=== PATIENT | female | born 1990 | race Caucasian/White ===

== ENCOUNTER 2018-02-11 12:03 | Inpatient (IN) | payer MEDICAID ==
[2018-02-11] MEDS ORDERED: ONDANSETRON HCL INJ/PF 4 MG/2 ML SDV IV ONE ×2 (12:27→16:20)
[2018-02-11] MEDS ORDERED: HYDROMORPHONE HCL INJ/PF 2 MG/ML AMPULE IV ONE ×2 (12:27→15:39)
--- NOTE | 2018-02-11 12:32 | ER Document Report ---
ED Medical Screen (RME) - General Chief Complaint: Back Pain Stated Complaint: BACK PAIN Time Seen by Provider: 02/11/18 12:24 Mode of Arrival: Wheelchair Information source: Patient TRAVEL OUTSIDE OF THE [place] IN LAST 30 DAYS: No - HPI Onset: Other - 4 d AGO Onset/Duration: Gradual Context: NO INJURY RECALLED Quality of pain: Pressure, Sharp Severity: Moderate Associated Symptoms: Other - NO INCONTINENCE OR RETENTION. denies: Chills, Fever Exacerbated by: Movement Relieved by: Denies Similar symptoms previously: Yes - BACK PAIN, YES; LEG SWELLING NO Recently seen / treated by doctor: Yes - BECCA FLORES E.D., 02/08 - Related Data Allergies/Adverse Reactions: Penicillins Allergy (Severe, Verified 06/24/16 17:06) Anaphylaxis Past Medical History - General Information source: Patient - Social History Frequency of alcohol use: None Drug Abuse: None - Past Medical History Cardiac Medical History: Reports: None Pulmonary Medical History: Reports: None EENT Medical History: Reports: None Neurological Medical History: Reports: Other - [place] Endocrine Medical History: Reports: None Renal/ Medical History: Reports: None. Denies: Hx Peritoneal Dialysis Malignancy Medical History: Reports: None GI Medical History: Reports: None Musculoskeltal Medical History: Reports Other - BACK PAIN Review of Systems - Review of Systems Constitutional: No symptoms reported. denies: Chills, Fever EENT: No symptoms reported Cardiovascular: No symptoms reported, Edema - LEFT LEG Respiratory: No symptoms reported. denies: Short of breath Gastrointestinal: No symptoms reported Genitourinary: No symptoms reported Female Genitourinary: No symptoms reported Musculoskeletal: See HPI, Back pain Skin: No symptoms reported Neurological/Psychological: No symptoms reported Physical Exam - Vital signs Vitals: Temp Pulse Resp BP Pulse Ox 98.9 F 71 18 138/76 H 98 02/11/18 12:18 02/11/18 12:18 02/11/18 12:18 02/11/18 12:18 02/11/18 12:18 Interpretation: Normal. No: Tachycardic, Tachypneic, Febrile - General General appearance: Appears well, Alert In distress: None - HEENT Head: Normocephalic Eyes: Normal Conjunctiva: Normal Nasal: Normal Mouth/Lips: Normal Mucous membranes: Normal - Respiratory Respiratory status: No respiratory distress - Cardiovascular Rhythm: Regular - Abdominal Inspection: Obese - Back Back: Tender - OVER L5, S1 - Extremities General upper extremity: Normal inspection General lower extremity: No: Normal inspection - L. LEG EDEMATOUS, VIOLACEOUS - Neurological Neuro grossly intact: No - HYPESTHESIA TO LIGHT TOUCH L. LEG & FOOT Cognition: Normal Orientation: AAOx4 - Psychological Associated symptoms: Normal affect, Normal mood - Skin Skin Temperature: Warm Skin Moisture: Dry Skin Color: Normal Skin Turgor: Elastic Course - Vital Signs Vital signs: Temp Pulse Resp BP Pulse Ox 98.9 F 71 18 138/76 H 98 02/11/18 12:18 02/11/18 12:18 02/11/18 12:18 02/11/18 12:18 02/11/18 12:18
[2018-02-11 13:28] LABS: ABSOLUTE LYMPHOCYTES (AUTO) 0.8 10^3/uL (0.5-4.7); ABSOLUTE MONOCYTES (AUTO) 0.6 10^3/uL (0.1-1.4); ABSOLUTE NEUT (AUTO) 11.7 10^3/uL (1.7-8.2); BASOPHILS % (AUTO) 0.2 % (0-2); HEMATOCRIT 42.9 % (36.0-47.0); HEMOGLOBIN 13.9 g/dL (12.0-15.5); MEAN CORPUSCULAR HEMOGLOBIN 28.6 pg (27.0-33.4); MEAN CORPUSCULAR HGB CONC 32.5 g/dL (32.0-36.0); MEAN CORPUSCULAR VOLUME 88 fl (80-97); MONOCYTES % (AUTO) 4.5 % (3-13); PLATELET COUNT 285 10^3/uL (150-450); RED BLOOD COUNT 4.87 10^6/uL (3.72-5.28); RED CELL DISTRIBUTION WIDTH 17.8 % (11.5-14.0); SEGMENTED NEUTROPHILS % (AUTO) 89.3 % (42-78); TOTAL CELLS COUNTED % (AUTO) 100 %; WHITE BLOOD COUNT 13.1 10^3/uL (4.0-10.5)
[2018-02-11 13:35] LABS: INTERNATIONAL RATION (INR) 1.08; PROTHROMBIN TIME 14.6 SEC (11.4-15.4)
[2018-02-11 14:05] LABS: ALANINE AMINOTRANSFERASE 66 U/L (9-52); ALBUMIN 4.1 g/dL (3.5-5.0); ALKALINE PHOSPHATASE 97 U/L (38-126); ANION GAP 13 (5-19); ASPARTATE AMINO TRANSFERASE 66 U/L (14-36); BILIRUBIN,DIRECT 0.4 mg/dL (0.0-0.4); BILIRUBIN,TOTAL 0.5 mg/dL (0.2-1.3); BLOOD UREA NITROGEN 18 mg/dL (7-20); CALCIUM 9.8 mg/dL (8.4-10.2); CARBON DIOXIDE 25 mmol/L (22-30); CHLORIDE 106 mmol/L (98-107); GLUCOSE 164 mg/dL (75-110); POTASSIUM 3.9 mmol/L (3.6-5.0); SODIUM 143.5 mmol/L (137-145); TOTAL PROTEIN 7.1 g/dL (6.3-8.2)
--- NOTE | 2018-02-11 15:14 | RADIOLOGY REPORT (SQ) ---
EXAM DESCRIPTION: VENOUS UNILATERAL LOWER COMPLETED DATE/TIME: 02/11/2018 2:42 pm REASON FOR STUDY: PAIN SWELLING L. LEG COMPARISON: None. TECHNIQUE: Dynamic and static glover scale and color images acquired of the left leg venous system. Se lected spectral images acquired with additional compression and augmentation maneuvers. The contralat eral common femoral vein and saphenofemoral junction were also imaged. Images stored on PACS. LIMITATIONS: None. FINDINGS: LEFT COMMON FEMORAL: Common femoral vein is distended with slow flow. Normal compression and augmentation . No visualized echogenic material on glover scale. No defects on color images. FEMORAL: Superficial femoral vein is distended with slow flow. Normal compression and augmentation. No visualized echogenic material on glover scale. No defects on color images. POPLITEAL: Popliteal vein is distended with slow flow. Normal compression, augmentation. No visualiz ed echogenic material on glover scale. No defects on color images. CALF VESSELS: Distended with slow flow. Normal compression, augmentation. No visualized echogenic ma terial on glover scale. No defects on color images. GSV and SSV: Normal compression, augmentation. No visualized echogenic material on glover scale. No def ects on color images. ANY DEEP VENOUS INSUFFICIENCY: Not evaluated. ANY EVIDENCE OF POPLITEAL CYST: No. OTHER: Throughout the left lower extremity venous system is distended with slow flow. Vessels are co mpressible. Findings are worrisome for more proximal venous obstruction in the pelvis along the left external or common iliac vein. Findings discussed with Dr. Dumont. RIGHT COMMON FEMORAL VEIN AND SAPHENOFEMORAL JUNCTION: Normal phasicity, compression and augmentation. No visualized echogenic material on glover scale. No de fects on color images. IMPRESSION: Although there is no acute deep venous thrombosis of the left leg, all of the deep and s uperficial fascial veins examined are distended with slow flow, worrisome for compression or obstruct ion in the iliac veins. Findings discussed with Dr. Dumont in the emergency room TECHNICAL DOCUMENTATION: JOB ID: [id number] [employer]- All Rights Reserved Reading location - IP/workstation name: [email or web address]
--- NOTE | 2018-02-11 15:54 | ER Document Report ---
ED Neck/Back Problem - General Chief Complaint: Back Pain Stated Complaint: BACK PAIN Time Seen by Provider: 02/11/18 12:24 Mode of Arrival: Wheelchair Information source: Patient TRAVEL OUTSIDE OF THE [place] IN LAST 30 DAYS: No - HPI Patient complains to provider of: Pain, Lower back Notes: Patient is here with complaints of low left back pain as well as left leg pain and leg swelling. Patient states that she has a history of having intermittent low back pain for years. She denies any recent falls or injuries. She states that the pain is worse when she lifts or moves her left leg coughs and moves in certain positions. Patient states that she was seen at an outside emergency department over the weekend for increasing pain in her left low back that was radiating down her left leg was diagnosed with sciatica and was placed on steroids, tramadol, muscle relaxers. She went back approximately 3-4 days ago due to swelling in the left leg and she reports that she was told she had a DVT in the left leg and was started on Xarelto. She is currently taking Xarelto. Since that time she has worsening swelling of the left leg and states that she is now having decreased sensation in the left leg. She denies any abdominal pain. She denies nausea, vomiting, diarrhea. She denies any rash. She denies any dysuria or hematuria. She denies any bowel or bladder dysfunction. No fever. No other complaints at this time. - Related Data Allergies/Adverse Reactions: Penicillins Allergy (Severe, Verified 06/24/16 17:06) Anaphylaxis cephalexin Allergy (Verified 02/11/18 12:29) Past Medical History - General Information source: Patient - Social History Smoking Status: Current Every Day Smoker Frequency of alcohol use: None Drug Abuse: None Family History: Reviewed & Not Pertinent Patient has suicidal ideation: No Patient has homicidal ideation: No - Past Medical History Cardiac Medical History: Reports: None Pulmonary Medical History: Reports: None EENT Medical History: Reports: None Neurological Medical History: Reports: Other - [place] Endocrine Medical History: Reports: None Renal/ Medical History: Reports: None. Denies: Hx Peritoneal Dialysis Malignancy Medical History: Reports: None GI Medical History: Reports: None Musculoskeltal Medical History: Reports Other - BACK PAIN Past Surgical History: Reports: Hx Section, Hx Tonsillectomy, Hx Tubal Ligation Review of Systems - Review of Systems -: Yes All other systems reviewed and negative Physical Exam - Vital signs Vitals: Temp Pulse Resp BP Pulse Ox 98.9 F 71 18 138/76 H 98 02/11/18 12:18 02/11/18 12:18 02/11/18 12:18 02/11/18 12:18 02/11/18 12:18 - Notes Notes: GENERAL: alert, cooperative, nontoxic, no distress. HEAD: normocephalic, atraumatic EYES: conjunctiva pink without discharge, no external redness or swelling. EARS: no external swelling, no external redness NOSE: atraumatic, no external swelling MOUTH/THROAT: mucous membranes moist and pink, posterior pharynx without erythema, swelling, exudate. No trismus or drooling. NECK: soft, supple, full range of motion, no meningismus. CHEST: no distress, lungs clear and equal throughout. No wheezing, rales, rhonchi. CARDIAC: regular rate and rhythm, no murmur, normal capillary refill, normal pulses. No peripheral edema noted. ABDOMEN: Soft, nontender. Obese abdomen. No obvious mass. No rebound tenderness or guarding. BACK: full range of motion, no CVA tenderness. Mild tenderness to the left lumbar area. No swelling. EXTREMITIES: Significant swelling to the entire left lower extremity. Left leg is cooler to the touch than the right and slightly dusky in appearance. Posterior tibial and dorsalis pedis pulse is currently palpable at this time. Decreased sensation to the left leg. NEURO: alert and oriented x 3, no focal deficits. PYSCH: appropriate mood, affect. Patient is cooperative. SKIN: pink, warm, dry, no rash. Course - Re-evaluation Re-evalutation: 02/11/18 20:49 Patient received pulse checks every hour while here in the emergency department. He was noted to have palpable pulses. Patient is nontoxic appearing with stable vitals. She is here with complaints of left leg pain and swelling. She was diagnosed with a DVT 4 days ago and was placed on Xarelto. She is having progressively worsening swelling of the left leg. Left leg does appear to be cooler than the right. She does have palpable pulses. She has normal reflexes. She does have some decreased sensation of the left leg as well. Patient had a CT the abdomen pelvis showed no obvious mass or occlusion. She had an ultrasound of the left lower extremity showing no DVT with dilation of the vessels and slow flow concerning for possible occlusion higher up. Her emergency department workup at this point is negative. I am concerned with the fact that her left leg is swelling more and is cooler to the touch. We would recommend admission to the hospital for further evaluation and management. Hospitalist is in the emergency department evaluating the patient at this time. 02/11/18 21:03 Patient was seen and evaluated by the hospitalist, the patient will be admitted for further evaluation and management. - Vital Signs Vital signs: Temp Pulse Resp BP Pulse Ox 98.9 F 71 18 138/76 H 98 02/11/18 12:18 02/11/18 12:18 02/11/18 12:18 02/11/18 12:18 02/11/18 12:18 - Laboratory Result Diagrams: 02/11/18 12:50 02/11/18 12:50 Laboratory results interpreted by me: 02/11/18 02/11/18 12:50 12:50 WBC 13.1 H RDW 17.8 H Seg Neutrophils % 89.3 H Lymphocytes % 6.0 L Absolute Neutrophils 11.7 H Glucose 164 H AST 66 H ALT 66 H - Diagnostic Test Radiology reviewed: Image reviewed, Reports reviewed - Venous Doppler of the left lower extremity shows dilation of the vessels with no DVT. CT of the abdomen and pelvis with IV and p.o. contrast show no acute abnormality or obstruction. Discharge - Discharge Clinical Impression: Leg swelling, Venous obstruction Back pain Qualifiers: Back pain location: low back pain Chronicity: acute Sciatica presence: with sciatica Sciatica laterality: sciatica of left side Condition: Stable Disposition: ADMITTED INPATIENT Admitting Provider: Hospitalist Unit Admitted: Medical Floor
[2018-02-11 16:50] LABS: APPEARANCE,URINE CLEAR; BILIRUBIN,URINE NEGATIVE (NEGATIVE); COLOR,URINE YELLOW; GLUCOSE, URINE NEGATIVE (NEGATIVE); KETONES,URINE NEGATIVE (NEGATIVE); LEUKOCYTE ESTERASE,URINE NEGATIVE (NEGATIVE); NITRITE,URINE NEGATIVE (NEGATIVE); PROTEIN,URINE NEGATIVE (NEGATIVE); URINE SPECIFIC GRAVITY 1.027; UROBILINOGEN,URINE NEGATIVE mg/dL (<2.0)
--- NOTE | 2018-02-11 18:56 | RADIOLOGY REPORT (SQ) ---
EXAM DESCRIPTION: CT ABD/PELVIS WITH IV ORAL COMPLETED DATE/TIME: 02/11/2018 6:31 pm REASON FOR STUDY: L. LE VENOUS OCCLUSION, R/O PELVIC MASS COMPARISON: None. TECHNIQUE: CT scan of the abdomen and pelvis performed using helical scanning technique with dynamic intravenous contrast injection. Oral contrast. Images reviewed with lung, soft tissue, and bone win dows. Reconstructed coronal and sagittal MPR images reviewed. Delayed images for evaluation of the ur inary system also acquired. All images stored on PACS. All CT scanners at this facility use dose modulation, iterative reconstruction, and/or weight based d osing when appropriate to reduce radiation dose to as low as reasonably achievable (ALARA). [facility]: Dose Right [facility]: CareDose [facility]: Dose Right [facility]: Teradose 4D [facility]: [employer] CONTRAST TYPE AND DOSE: contrast/concentration: Isovue 370.00 mg/ml; Total Contrast Delivered: 94.0 ml; Total Saline Delivered: 51.0 ml RENAL FUNCTION: BUN 18 creatinine 0.82 RADIATION DOSE: CT Rad equipment meets quality standard of care and radiation dose reduction techniq ues were employed. CTDIvol: 13.5 - 16.0 mGy. DLP: 1627 mGy-cm.. LIMITATIONS: None. FINDINGS: LOWER CHEST: No significant findings. No nodules or infiltrates. LIVER: Normal size. No masses. No dilated ducts. SPLEEN: Normal size. No focal lesions. PANCREAS: No masses. No significant calcifications. No adjacent inflammation or peripancreatic fluid collections. Pancreatic duct not dilated. GALLBLADDER: No identified stones by CT criteria. No inflammatory changes to suggest cholecystitis. ADRENAL GLANDS: No significant masses or asymmetry. RIGHT KIDNEY AND URETER: No solid masses. No significant calcifications. No hydronephrosis or hyd roureter. LEFT KIDNEY AND URETER: No solid masses. No significant calcifications. No hydronephrosis or hydr oureter. AORTA AND VESSELS: No aneurysm. No dissection. Renal arteries, SMA, celiac without stenosis. RETROPERITONEUM: No retroperitoneal adenopathy, hemorrhage or masses. BOWEL AND PERITONEAL CAVITY: There is what appears to be an opacified loop of small bowel on the left side of abdomen. See images 37 through 46. This changes appearance has contrast moves through the bowel. However, an 18 mm small bowel mass cannot entirely be excluded on image 44. APPENDIX: Not identified. PELVIS: No mass. No free fluid. Normal bladder. ABDOMINAL WALL: No masses. No hernias. BONES: No significant or acute findings. OTHER: No other significant finding. IMPRESSION: 1. No pelvic mass is present. 2. Cannot entirely exclude an 18 mm small bowel mass on the left. This may merely represent opacifi ed small bowel. Consider repeating a scanning sequence at this time. TECHNICAL DOCUMENTATION: JOB ID: [id number] Quality ID # [id number]: Final reports with documentation of one or more dose reduction techniques (e.g., Au tomated exposure control, adjustment of the mA and/or kV according to patient size, use of iterative reconstruction technique) 2010 [employer]- All Rights Reserved Reading location - IP/workstation name: [email or web address]
--- NOTE | 2018-02-11 20:08 | RADIOLOGY REPORT (SQ) ---
EXAM DESCRIPTION: CT ABD/PELVIS NO ORAL OR IV COMPLETED DATE/TIME: 02/11/2018 7:35 pm REASON FOR STUDY: left leg pain and decreased sensation COMPARISON: 02/11/2018 TECHNIQUE: CT scan of the abdomen and pelvis performed without intravenous or oral contrast. Images reviewed with lung, soft tissue, and bone windows. Reconstructed coronal and sagittal MPR images revi ewed. All images stored on PACS. All CT scanners at this facility use dose modulation, iterative reconstruction, and/or weight based d osing when appropriate to reduce radiation dose to as low as reasonably achievable (ALARA). [facility]: Dose Right [facility]: CareDose [facility]: Dose Right [facility]: Teradose 4D [facility]: [employer] RADIATION DOSE: CT Rad equipment meets quality standard of care and radiation dose reduction techniq ues were employed. CTDIvol: 11.5 mGy. DLP: 606 mGy-cm.mGy. LIMITATIONS: None. FINDINGS: LOWER CHEST: No significant findings. No nodules or infiltrates. NON-CONTRASTED LIVER, SPLEEN, ADRENALS: Evaluation limited by lack of IV contrast. No identified sign ificant masses. PANCREAS: No masses. No peripancreatic inflammatory changes. GALLBLADDER: No identified stones by CT criteria. No inflammatory changes to suggest cholecystitis. RIGHT KIDNEY AND URETER: No suspicious masses. Assessment limited by lack of IV contrast. No signif icant calcifications. No hydronephrosis or hydroureter. LEFT KIDNEY AND URETER: No suspicious masses. Assessment limited by lack of IV contrast. No signifi cant calcifications. No hydronephrosis or hydroureter. AORTA AND RETROPERITONEUM: No aneurysm. No retroperitoneal masses or adenopathy. BOWEL AND PERITONEAL CAVITY: No small bowel mass is seen. APPENDIX: Not identified. PELVIS, BLADDER, AND ABDOMINAL WALL:No abnormal masses. No free fluid. Bladder normal. BONES: No significant findings. OTHER: Subcutaneous edema is seen in the left lower extremity. IMPRESSION: 1. No small bowel mass is appreciated. 2. There is mild subcutaneous edema in the left lower extremity. COMMENT: Quality ID # [id number]: Final reports with documentation of one or more dose reduction techniques (e.g., Automated exposure control, adjustment of the mA and/or kV according to patient size, use of iterative reconstruction technique) TECHNICAL DOCUMENTATION: JOB ID: [id number]- All Rights Reserved Reading location - IP/workstation name: [email or web address]
[2018-02-11] MEDS ORDERED: ONDANSETRON HCL INJ/PF 4 MG/2 ML SDV IV PRN (21:04)
--- NOTE | 2018-02-11 21:55 | PDOC H&P ---
History of Present Illness Admission Date/PCP: 02/11/18 21:27 History of Present Illness: TREE GLYNN is a 27 year old female patient presents with left lower back and left leg pain. The pain is precipitated by bending forward and moving her left leg. Patient reports this morning of intermittent left buttock pain which comes and goes but this time it gets worse. For this problem patient was seen at outside facility emergency department where she was diagnosed with sciatica and started on steroids, tramadol and muscle relaxant. Since patient does not show any improvement she revisited ER and at this time patient was diagnosed with left leg DVT and started on Xarelto. Patient came to this hospital because the pain is unbearable and she is now having decreased sensation and swelling of the left leg. Patient denies any fever, chills, palpitation, diaphoresis, nausea, vomiting, diarrhea, abdominal pain or urinary complaints. No headache, dizziness, blurring of vision or any seizure activity. Past Medical History Cardiac Medical History: Reports: None Pulmonary Medical History: Reports: None EENT Medical History: Reports: None Neurological Medical History: Reports: Other - SCIATICA Endocrine Medical History: Reports: None Renal/ Medical History: Reports: None Malignancy Medical History: Reports: None GI Medical History: Reports: None Musculoskeltal Medical History: Reports: Other - BACK PAIN Past Surgical History Past Surgical History: Reports: Section, Tonsillectomy, Tubal Ligation Social History Smoking Status: Current Every Day Smoker Frequency of Alcohol Use: None Hx Recreational Drug Use: No Drugs: None Hx Prescription Drug Abuse: No Family History Family History: Reviewed & Not Pertinent Parental Family History Reviewed: Yes Children Family History Reviewed: Yes Sibling(s) Family History Reviewed.: Yes Medication/Allergy Home Medications: Prednisone 60 mg PO DAILY 02/11/18 Rivaroxaban [Xarelto] 1 each PO BID 02/11/18 Tramadol HCl 50 mg PO Q6 PRN 02/11/18 Allergies/Adverse Reactions: Penicillins Allergy (Severe, Verified 06/24/16 17:06) Anaphylaxis cephalexin Allergy (Verified 02/11/18 12:29) Review of Systems Constitutional: PRESENT: as per HPI Eyes: PRESENT: as per HPI Ears: PRESENT: as per HPI Respiratory: PRESENT: as per HPI Gastrointestinal: PRESENT: as per HPI Musculoskeletal: PRESENT: as per HPI Neurological: PRESENT: as per HPI Physical Exam Vital Signs: Temp Pulse Resp BP Pulse Ox 98.9 F 71 18 138/76 H 98 02/11/18 12:18 02/11/18 12:18 02/11/18 12:18 02/11/18 12:18 02/11/18 12:18 General appearance: PRESENT: mild distress Head exam: PRESENT: atraumatic, normocephalic Eye exam: PRESENT: conjunctiva pink, EOMI, PERRLA. ABSENT: scleral icterus Respiratory exam: PRESENT: clear to auscultation mainor. ABSENT: rales, rhonchi, wheezes Cardiovascular exam: PRESENT: RRR. ABSENT: diastolic murmur, rubs, systolic murmur GI/Abdominal exam: PRESENT: normal bowel sounds, soft. ABSENT: distended, guarding, mass, organolmegaly, rebound, tenderness Musculoskeletal exam: PRESENT: other - Left leg relatively swollen, tender and mild erythema Neurological exam: PRESENT: alert, awake, oriented to time, oriented to situation Results Impressions: Venous Doppler Study 02/11/18 12:25 IMPRESSION: Although there is no acute deep venous thrombosis of the left leg, all of the deep and superficial fascial veins examined are distended with slow flow, worrisome for compression or obstruction in the iliac veins. Findings discussed with Dr. Dumont in the emergency room Abdomen/Pelvis CT 02/11/18 19:20 IMPRESSION: 1. No small bowel mass is appreciated. 2. There is mild subcutaneous edema in the left lower extremity. Assessment & Plan - Diagnosis (1) Intractable low back pain Is this a current diagnosis for this admission?: Yes Plan: Patient failed outpatient treatment. She has been started on Percocet and fentanyl patch 50 mics (2) Left leg DVT Is this a current diagnosis for this admission?: Yes Plan: Continue Xarelto (3) Obesity Qualifiers: Obesity type: due to excess calories Is this a current diagnosis for this admission?: Yes Plan: Patient advised to do lifestyle modification.
[2018-02-11] MEDS: OXYCODONE-ACETAMINOPHEN 5-325 MG TABLET PO PRN (21:57)
[2018-02-11] MEDS ORDERED: RIVAROXABAN 10 MG TABLET PO SCH (22:00)
[2018-02-11] MEDS ORDERED: FENTANYL 25 MCG/HR PATCH.TD72 TD SCH (22:00)
--- NOTE | 2018-02-11 23:20 | RADIOLOGY REPORT (SQ) ---
EXAM DESCRIPTION: MRI LUMBAR SPINE COMBO COMPLETED DATE/TIME: 02/11/2018 10:57 pm REASON FOR STUDY: back pain COMPARISON: None. TECHNIQUE: Sagittal and Axial imaging includes T1, T1 post gadolinium, T2, STIR and gradient echo se quences. Coronal T2/HASTE imaging. CONTRAST TYPE AND DOSE: 15 mL Multihance. RENAL FUNCTION: None required. The patient is less than 50 years old. LIMITATIONS: None. FINDINGS: VISUALIZED UPPER ABDOMEN: Limited evaluation. No acute or suspicious findings suggested. SEGMENTATION: No transitional anatomy. The lowest well-developed disc space is labeled L5-S1. ALIGNMENT: Anatomic. VERTEBRAE: Intact. No fractures. BONE MARROW: No marrow edema. DISC SIGNAL: Normal. No significant abnormal signal or loss of height. POSTERIOR ELEMENTS: Generally intact. No pars defect evident. HARDWARE: None in the spine. CORD AND CONUS: Normal in size and signal intensity. Conus at the appropriate level. SOFT TISSUES: No aortic aneurysm seen. No bulky retroperitoneal adenopathy or mass. No paraspinal mas s or fluid. L1-L2: No significant spinal stenosis or exit foraminal stenosis. L2-L3: No significant spinal stenosis or exit foraminal stenosis. L3-L4: No significant spinal stenosis or exit foraminal stenosis. L4-L5: No significant spinal stenosis or exit foraminal stenosis. L5-S1: No significant spinal stenosis or exit foraminal stenosis. LOWER THORACIC: Incompletely imaged. No stenosis seen. SACRUM: Visualized upper sacrum intact. ENHANCEMENT: No abnormal enhancement. OTHER: Small accessory varices in the retroperitoneum and lumbar plexus. IMPRESSION: No disc protrusion or acute intraspinal abnormality.Small accessory varices in the retro peritoneum and lumbar plexus. TECHNICAL DOCUMENTATION: JOB ID: [id number] 2010 [employer]- All Rights Reserved Reading location - IP/workstation name: [email or web address]
[2018-02-12] MEDS: LANSOPRAZOLE 30 MG TAB.RAP.DR PO SCH (06:24)
[2018-02-12 07:06] LABS: HEMATOCRIT 40.2 % (36.0-47.0); HEMOGLOBIN 13.2 g/dL (12.0-15.5); MEAN CORPUSCULAR HEMOGLOBIN 28.9 pg (27.0-33.4); MEAN CORPUSCULAR HGB CONC 32.8 g/dL (32.0-36.0); MEAN CORPUSCULAR VOLUME 88 fl (80-97); PLATELET COUNT 193 10^3/uL (150-450); RED BLOOD COUNT 4.55 10^6/uL (3.72-5.28); RED CELL DISTRIBUTION WIDTH 17.5 % (11.5-14.0); WHITE BLOOD COUNT 8.7 10^3/uL (4.0-10.5)
[2018-02-12 07:37] LABS: ANION GAP 8 (5-19); BLOOD UREA NITROGEN 15 mg/dL (7-20); CARBON DIOXIDE 29 mmol/L (22-30); CHLORIDE 105 mmol/L (98-107); GLUCOSE 85 mg/dL (75-110); SODIUM 141.6 mmol/L (137-145)
[2018-02-12] MEDS: OXYCODONE-ACETAMINOPHEN 5-325 MG TABLET PO PRN ×3 (07:47→23:17)
[2018-02-12] MEDS ORDERED: KETOROLAC TROMETHAMINE INJ/PF 30 MG/1 ML SDV IV ONE (16:44)
[2018-02-12] MEDS ORDERED: KETOROLAC TROMETHAMINE INJ/PF 30 MG/1 ML SDV IV PRN (16:44)
--- NOTE | 2018-02-12 17:44 | PROGRESS NOTE E ---
Progress Note NAME: TREE GLYNN : 1990 AGE: 27Y DATE: 02/12/2018 ROOM: 210 SUBJECTIVE: The patient is seen in bed. The patient is quite tearful, concerned. The patient at this time denies any nausea, vomiting, diarrhea. No shortness of breath due to the chest pain. The patient was actually eating a sub sandwich when I entered the room. The patient states her pain is unbearable and has not improved throughout the day. The patient has been afebrile. Her blood pressures have been in a good range. The patient does not voice any specific concerns at this time. REVIEW OF SYSTEMS: The rest of the review of systems is negative. MEDICATIONS: Reviewed. OBJECTIVE: GENERAL: The patient is a 27-year-old female, who is awake, alert. She is oriented to person, place, time and situation. She is verbal and conversational. Does not appear to be in physical distress. VITAL SIGNS: Temperature is 98.3, pulse 83, respirations 15, blood pressure is 119/70, oxygen saturation 98% on room air. SKIN: Warm and dry. No rash. She is not diaphoretic. HEENT: Pupils equal, round and reactive to light and accommodation. Conjunctivae are pink. No evidence of JVD. CARDIOVASCULAR: Heart is regular. No murmur or rub. CHEST: Clear, symmetrical, unlabored. ABDOMEN: Soft, nontender, nondistended. BACK: No CVA tenderness or sacral edema. EXTREMITIES: No clubbing or cyanosis. The patient does have nonpitting edema noted of the left lower extremity. There is a discoloration. The patient does have 1+ pedal pulses bilaterally. The patient does have appropriate +2 inguinal pulses. Lower extremity is cool to the touch. It is not erythemic, but is not cold. PSYCHIATRIC: The patient is somewhat emotional. DIAGNOSTICS: Lab values are as follows: Hematology obtained on 02/12/2018: WBC is 8.7, hemoglobin is 13.2, hematocrit is 30.2, platelet count is 193,000. Chemistry obtained on 02/12/2018: Sodium is 141, potassium 4.0, chloride is 105, carbon dioxide 29, BUN 15, creatinine is 0.72. Glucose 85. Calcium is 9.0. IMPRESSION AND PLAN: 1. LEFT LOWER EXTREMITY DVT. I did call and discuss the case with Dr. Lencho Lisa, who has graciously agreed to see the patient. Will transition the patient's Xarelto to weight dose Lovenox to ensure efficacy of treatment. Additionally, we will add NSAID for inflammatory pain. At this time, the patient has no overt evidence of cyanosis or endangered limb. The patient does have appropriate pedal pulses at this time. I do appreciate Dr. Lencho Lisa' input with this. 2. TRANSAMINITIS, RELATIVELY MILD. MAY HAVE SOME UNDERLYING FATTY LIVER. Will repeat in the a.m. 3. OBESITY. The patient was counseled regarding lifestyle modification. 4. LOWER BACK PAIN. MAY BE DUE TO POSITIONING. The patient had no evidence on physical examination. The patient's MRI of the lower extremity was unremarkable. Will increase the patient's Percocet and add Toradol. DISPOSITION: The patient is a FULL CODE. Pending patient's symptomatology and diagnostic findings, will reevaluate in the a.m. Time spent on this followup, including assessment, plan, physical examination, patient education, review of records, specialty collaboration is 40 minutes. DICTATING PHYSICIAN: NADEEM PLATA NP [id number] PHY#: [id number] ID: [id number] JOB#: [id number] ACCT: [id number] cc: >
[2018-02-12] MEDS: ENOXAPARIN SODIUM INJ 100 MG/1 ML DISP.SYRIN SUBCUT SCH (18:12)
[2018-02-13] MEDS: LANSOPRAZOLE 30 MG TAB.RAP.DR PO SCH (06:00)
[2018-02-13] MEDS: ENOXAPARIN SODIUM INJ 100 MG/1 ML DISP.SYRIN SUBCUT SCH ×2 (06:00→17:10)
[2018-02-13 07:13] LABS: HEMATOCRIT 41.7 % (36.0-47.0); HEMOGLOBIN 13.6 g/dL (12.0-15.5); MEAN CORPUSCULAR HEMOGLOBIN 28.6 pg (27.0-33.4); MEAN CORPUSCULAR HGB CONC 32.6 g/dL (32.0-36.0); MEAN CORPUSCULAR VOLUME 88 fl (80-97); PLATELET COUNT 248 10^3/uL (150-450); RED BLOOD COUNT 4.75 10^6/uL (3.72-5.28); RED CELL DISTRIBUTION WIDTH 17.6 % (11.5-14.0); WHITE BLOOD COUNT 11.7 10^3/uL (4.0-10.5)
[2018-02-13 08:57] LABS: APPEARANCE,URINE SLIGHTLY-CLOUDY; BILIRUBIN,URINE NEGATIVE (NEGATIVE); COLOR,URINE AMBER; GLUCOSE, URINE NEGATIVE (NEGATIVE); KETONES,URINE NEGATIVE (NEGATIVE); LEUKOCYTE ESTERASE,URINE TRACE (NEGATIVE); NITRITE,URINE NEGATIVE (NEGATIVE); PROTEIN,URINE NEGATIVE (NEGATIVE); URINE SPECIFIC GRAVITY 1.024
[2018-02-13] MEDS: OXYCODONE-ACETAMINOPHEN 5-325 MG TABLET PO PRN (11:18)
--- NOTE | 2018-02-13 16:51 | PDOC CONSULTATION ---
Consultation Consult Date: 02/13/18 Attending physician:: ZOE SUNSHINE Consult reason:: Sudden onset pain and swelling in the left lower extremity. History of Present Illness Admission Date/PCP: 02/11/18 21:27 Patient complains of: Left lower back pain and left lower extremity pain. History of Present Illness: TREE GLYNN is a 27 year old female This patient is admitted with severe pain in the left lower extremity left lower back pain. She has been on Xarelto for a presumed clot. She notes severe back pain starting about a week ago followed by left lower extremity swelling. She says she has had this left lower back pain before and usually goes away. This time it did not. No specific injuries. She has never noticed lower extremity swelling except for bilateral swelling during her pregnancies. No special predilection for the left. No family history of clots or DVT. No current use of control pills. Not for several years. The patient is a heavy smoker seems about a pack per day. Past Medical History Cardiac Medical History: Reports: None Pulmonary Medical History: Reports: None EENT Medical History: Reports: None Neurological Medical History: Reports: Other - [place] Endocrine Medical History: Reports: None Renal/ Medical History: Reports: None Malignancy Medical History: Reports: None GI Medical History: Reports: None Musculoskeltal Medical History: Reports: Other - BACK PAIN Past Surgical History Past Surgical History: Reports: Section, Tonsillectomy, Tubal Ligation Social History Smoking Status: Unknown if Ever Smoked Frequency of Alcohol Use: None Hx Recreational Drug Use: No Drugs: None Hx Prescription Drug Abuse: No Family History Family History: Reviewed & Not Pertinent Parental Family History Reviewed: Yes - No history of clots or DVT. Children Family History Reviewed: No Sibling(s) Family History Reviewed.: No Medication/Allergy Home Medications: No Home Medications 02/11/18 Allergies/Adverse Reactions: Penicillins Allergy (Severe, Verified 06/24/16 17:06) Anaphylaxis cephalexin Allergy (Verified 02/11/18 12:29) Physical Exam Vital Signs: Temp Pulse Resp BP Pulse Ox 98.0 F 76 16 131/77 H 98 02/13/18 11:41 02/13/18 11:41 02/13/18 11:41 02/13/18 11:41 02/13/18 11:41 Intake & Output 02/12/18 02/13/18 02/14/18 06:59 06:59 06:59 Intake Total 350 Balance 350 Weight 89.4 kg Additional comments: Constitutional: Well-developed well-nourished lady, obese body habitus. Apparent emotional distress. Eyes: Mucous membranes pink and moist, pupils equal and reactive to light. Conjunctiva normal. Cornea normal. Cardiac: Heart sounds 1 and 2 normal, no murmurs. Respiratory breath sounds are present bilaterally, normal. Normal respiratory effort. Skin: Normal to inspection. No ulcers, normal turgor. Abdomen: Soft, nontender. Liver and spleen are not palpably enlarged. Bowel sounds are normal. No hernia noted. Striae gravidarum noted. Psychiatric: Judgment, memory, insight seem normal. Mood is anxious. Extremities: Upper extremities show normal range of movement. Pulses present noted to the radial arteries. Capillary refill normal. No cyanosis noted. No muscle wasting noted. Lower extremities show normal range of movement, some reduction in movement of the ankle due to swelling. Pulses present noted to the dorsalis pedis artery. Capillary refill normal. Considerable amount of swelling in the left lower extremity including the feet. No muscle wasting noted. Results Laboratory Results: 02/13/18 06:20 02/12/18 06:54 02/13/18 02/13/18 02/13/18 05:50 06:20 08:04 WBC 11.7 H RBC 4.75 Hgb 13.6 Hct 41.7 MCV 88 MCH 28.6 MCHC 32.6 RDW 17.6 H Plt Count 248 Urine Color Cancelled Urine Appearance Cancelled Urine pH Cancelled Ur Specific Max Cancelled Urine Protein Cancelled Urine Glucose (UA) Cancelled Urine Ketones Cancelled Urine Blood Cancelled Urine Nitrite Cancelled Ur Leukocyte Esterase Cancelled Urine WBC (Auto) Cancelled Urine RBC (Auto) Cancelled Stool Occult Blood NEGATIVE 02/13/18 08:15 WBC RBC Hgb Hct MCV MCH MCHC RDW Plt Count Urine Color JONNIE Urine Appearance SLIGHTLY-CLOUDY Urine pH 6.0 Ur Specific Max 1.024 Urine Protein NEGATIVE Urine Glucose (UA) NEGATIVE Urine Ketones NEGATIVE Urine Blood NEGATIVE Urine Nitrite NEGATIVE Ur Leukocyte Esterase TRACE H Urine WBC (Auto) 3 Urine RBC (Auto) 2 Stool Occult Blood Impressions: Lumbar Spine MRI 02/11/18 00:00 IMPRESSION: No disc protrusion or acute intraspinal abnormality.Small accessory varices in the retroperitoneum and lumbar plexus. Venous Doppler Study 02/11/18 12:25 IMPRESSION: Although there is no acute deep venous thrombosis of the left leg, all of the deep and superficial fascial veins examined are distended with slow flow, worrisome for compression or obstruction in the iliac veins. Findings discussed with Dr. Dumont in the emergency room Abdomen/Pelvis CT 02/11/18 19:20 IMPRESSION: 1. No small bowel mass is appreciated. 2. There is mild subcutaneous edema in the left lower extremity. Assessment & Plan - Diagnosis (1) Thrombosis of left iliac vein Is this a current diagnosis for this admission?: Yes Plan: Left lower extremity edema present on several studies. CT scan with IV IV contrast discussed with Dr. Alegria, confirms presence of left iliac vein thrombosis. Recommendations are for leg elevation, when seated or recumbent. Activity, particularly walking is encouraged. Compression stockings to be used bilaterally but certainly on the left. Especially important during activity. Smoking cessation is absolutely essential. I discussed this with the patient. She does have a heavy tobacco use habit but really must stop this is a significant risk factor for thrombosis. She understands that extension of this clot can result in pulmonary embolus, which is potentially lethal and every effort needs to be taken to prevent that. Hydration is important and I recommend keeping urine fairly clear with adequate water intake. Body mass index within normal is also desirable although more challenging to accomplish requiring time, activity, diet. In this young woman May Thurner syndrome is to be suspected and I believe she should be seen by vascular interventionalist for IVUS and possible stenting of the left iliac vein. This ideally in the next few weeks. I would be happy to arrange this. For the time being she should certainly remain on adequate anticoagulation. I would be happy to see her in office next Friday or . For the time being there appears no absolute need for to be in hospital, this judgment would be left to the patient and her physicians. (2) Back pain Qualifiers: Back pain location: low back pain Chronicity: acute Sciatica presence: with sciatica Sciatica laterality: sciatica of left side Is this a current diagnosis for this admission?: Yes (3) Leg swelling Is this a current diagnosis for this admission?: Yes (4) Obesity Qualifiers: Obesity type: due to excess calories Is this a current diagnosis for this admission?: Yes (5) Tobacco use disorder Is this a current diagnosis for this admission?: Yes Plan: Complete cessation of tobacco use is very strongly advocated and reasons discussed. - Plan Summary Plan Summary: As noted above under iliac vein thrombosis. I will be available for further follow-up and certainly would be happy to see the patient in office to participate in arranging vascular intervention.
[2018-02-13 17:55] VITALS: BP 108/68
--- NOTE | 2018-02-14 11:39 | DISCHARGE SUMMARY E ---
Discharge Summary NAME: TREE GLYNN : 1990 AGE: 27Y ADMITTED: 02/11/2018 DISCHARGED: 02/13/2018 CODE STATUS: FULL CODE. PRIMARY CARE PROVIDER: Nohemi Sharp CONSULTING VASCULAR SURGEON: Dr. Lencho Lisa. DISCHARGE DIAGNOSES: Includes: 1. Thrombosis of the left iliac vein. 2. Lower back pain and subsequent sciatica. 3. Obesity. 4. Tobacco dependency, continuous. 5. Mildly elevated LFTs. DISCHARGE MEDICATIONS: Include: 1. Lovenox 90 mg subcu q. 12 hours, 7 doses, 0 refills. 2. Ibuprofen 800 mg p.o. q. 8 hours p.r.n., 30 tablets with 0 refills. DIET: As tolerated. ACTIVITY: Keep left leg elevated when not in use. DIAGNOSTICS: Lab values are as follows: Hematology obtained on 02/13/2018: WBCs are 11.7, hemoglobin is 13.6, hematocrit is 41.7, platelet count is 248,000. Coagulation obtained on 02/11/2018: PT is 14.6, INR is 1.08. Chemistry obtained on 02/12/2018: Sodium is 141, potassium 4.0, chloride is 105, carbon dioxide 29, BUN 15, creatinine is 0.72, glucose 85, calcium is 9.0, bilirubin is 0.5. AST 66, ALT is 66, Alk phos 97, total protein 7.1, albumin is 4.1. HCG is negative. Urinalysis obtained on 02/13/2018: Color jenaro, appearance slightly cloudy. PH is 6.0, specific gravity is 1.024. Protein negative, glucose negative, ketones negative, occult blood negative, nitrite negative, bilirubin negative, urobilinogen is 4, leukocyte esterase is trace. WBCs 3, RBCs 2, bacteria trace. Other body source obtained on 02/13/2018: Stool for occult blood is negative. Lumbar spine MRI obtained on 02/11/2018 reveals no disk protrusion, acute intraspinal abnormality. Venous Doppler study obtained on 02/11/2018 reveals no findings to suggest acute DVT of the left leg. All of the deep and superficial fascial veins examined are distended with blood flow worrisome for compression or obstruction in the iliac veins. CT of the abdomen and pelvis obtained on 02/11/2018 reveals no pelvic mass present, cannot exclude an 18 mm small bowel mass on the left, which may represent opacified small bowel. CT of the abdomen and pelvis obtained on 02/11/2018 revealed no small bowel mass appreciated. There is mild subcutaneous edema of the left lower extremity. PHYSICAL EXAMINATION: GENERAL: On examination, the patient is a well-developed, obese 27-year-old female who is awake, alert. She is oriented to person, place, time, and situation. She is very anxious, does not appear to be in any acute distress. VITAL SIGNS: Temperature is 97.9, pulse 70, respirations 16, blood pressure is 108/68, oxygen saturation is 100% on room air. SKIN: Warm, dry. No rash. She is not diaphoretic. HEENT: Pupils equal, round, and reactive to light and accommodation. Conjunctiva is pink. No evidence of JVP. CARDIOVASCULAR SYSTEM: Heart is regular. There is no murmur or rub. CHEST: Clear, symmetrical, unlabored. ABDOMEN: Soft, nontender, nondistended. BACK: No CVA tenderness or sacral edema. EXTREMITIES: No clubbing, cyanosis. The patient's left lower extremity redness is improving with +1 pedal pulses noted bilaterally. PSYCHIATRIC: The patient is extremely anxious and exaggeratory. HISTORY OF PRESENT ILLNESS: The patient is a 27-year-old female with a past medical history of heavy tobacco use that presented to the emergency department with a chief complaint of lower back pain and left leg pain. The pain is precipitated by bending forward and moving her left leg. The patient states the morning of presentation she had intermittent left buttock pain, which comes and goes, but had gotten to the point that it was unbearable. The patient was actually seen at [facility] where she was diagnosed with sciatica, was started on steroids, tramadol, and muscle relaxant. The patient stated that she had no improvement and revisited this ER and was diagnosed with a left leg DVT and started on Xarelto. The patient came back to the hospital because the pain was unbearable and she was having decreased sensation as well as swelling of the leg. The patient denies any fevers, chills, palpitations, diaphoresis, nausea, vomiting, diarrhea, abdominal pain. No urinary complaints. No headache, dizziness, blurring, or any seizure activity, and the patient was referred to the hospitalist for admission and management. HOSPITAL COURSE: The patient was admitted to the medical unit. The patient was transitioned over to Lovenox given that she was not having significant improvement with Xarelto. Dr. Lencho Lisa with Vascular Surgery was consulted and the patient was evaluated by him. Upon further review of images, it appears the patient does indeed have a DVT of the iliac area and therefore is recommended followup with Dr. Benson, Vascular Surgery in [place], [place] on Friday. The patient can be seen as a walk-in. This was communicated to her. During the patient's stay, she was treated with NSAIDs. However, it is to be noted that the patient's reaction was not proportional to the course of events. The patient was often near hysterics and angry with staff. The patient was outside every hour or so smoking, although staff had forbid the patient to do this. Upon my conversations with the patient, I tried to correct some of her misconceptions about this issue. However, the patient would repeat my explanation in exaggerated terms. Prior to discharge, the case was discussed on speaker phone with the patient's at the patient's request. The patient explained to me that her would "rip you a new one." However, the patient's seemed genuinely concerned and was very calm and asked all appropriate questions. However, this patient's interpretation of this exchange was more of volatile than actually transpired. I have made numerous attempts to calm the patient and to put this in perspective; however, the patient is absolutely adamant that she be discharged. The patient is able to inject herself with Lovenox and has received teaching. I will send these over to the pharmacy and the patient can follow up Friday in [place]. This has been communicated to her by myself and staff, and the patient will not maintain eye contact for conversation and just continues to get dressed. The patient denies any shortness of breath. The patient has no wheezing, and the patient's acts as though the patient's behavior is normal. The patient received smoking cessation education by both nursing staff, myself, and Dr. Lisa. Additionally, the patient denies use of oral contraceptives and was warned regarding the repercussions of in the setting of clotting disorder. DISCHARGE PLANNING: The patient is to follow up with Dr. Benson in [place] with Vascular Surgery for followup at the direction of Dr. Lencho Lisa. Time spent on this discharge including assessment, plan, physical examination, patient education, review of records is 35 minutes. DICTATING PHYSICIAN: NADEEM PLATA NP [id number] PHY#: [id number] ID: [id number] JOB#: [id number] ACCT: [id number] cc:SUDHAKAR WHEATLEY M.D. > [facility]PITALSteven
== END 2018-02-13 18:15 | disposition home or self-care (01) | DRG 301 ==
LOC: ER 12:03 → INTOOBSV 21:27 → EH 21:27 → OBSVTOIN 21:27 → 2N 02-12 02:48
PROVIDERS: ADMIT Internal Medicine; ATTEND Internal Medicine
DX: I82.422 Acute embolism and thrombosis of left iliac vein (principal); M54.30 Sciatica, unspecified side; R74.8 Abnormal levels of other serum enzymes; R74.0 Nonspecific elevation of levels of transaminase and lactic acid dehydrogenase [LDH]; E66.9 Obesity, unspecified; F17.210 Nicotine dependence, cigarettes, uncomplicated; Z79.01 Long term (current) use of anticoagulants; Z68.38 Body mass index [BMI] 38.0-38.9, adult
CPT/HCPCS: 36415; 72158; 74176; 74177; 80048; 80053; 81001; 82272; 84703; 85025; 85027; 85610; 93971; 96374; 96375; 96376; 99285; G0378; J1170; J1650; J1885; J2405; J3490

== ENCOUNTER 2020-09-01 12:26 | Emergency (ER) | payer MEDICAID ==
--- NOTE | 2020-09-01 13:25 | ER Document Report ---
ED Medical Screen (RME) - General Chief Complaint: Leg Pain Stated Complaint: LEG PAIN Time Seen by Provider: 09/01/20 13:06 Notes: Patient is a 30-year-old female with a history of DVTs who presents to the emergency department with left lateral leg pain. Patient states that her symptoms started about 2 days ago. Patient is currently on Xarelto. Denies any injury. Exam: Tender left lateral thigh. I have greeted and performed a rapid initial assessment of this patient. A comprehensive ED assessment and evaluation of the patient, analysis of test results and completion of medical decision making process will be conducted by an additional ED providers. TRAVEL OUTSIDE OF THE [place] IN LAST 30 DAYS: No - Related Data Allergies/Adverse Reactions: Penicillins Allergy (Severe, Verified 06/24/16 17:06) Anaphylaxis cephalexin Allergy (Verified 02/11/18 12:29) Past Medical History Renal/ Medical History: Denies: Hx Peritoneal Dialysis Past Surgical History: Reports: Hx Section, Hx Tonsillectomy, Hx Tubal Ligation Physical Exam - Vital signs Vitals: Temp Pulse Resp BP Pulse Ox 98.4 F 98 18 143/113 H 99 09/01/20 13:00 09/01/20 13:00 09/01/20 13:00 09/01/20 13:00 09/01/20 13:00 Course - Vital Signs Vital signs: Temp Pulse Resp BP Pulse Ox 98.4 F 98 18 143/113 H 99 09/01/20 13:00 09/01/20 13:00 09/01/20 13:00 09/01/20 13:00 09/01/20 13:00
--- NOTE | 2020-09-01 15:17 | ER Document Report ---
HPI - HPI Time Seen by Provider: 09/01/20 13:06 Pain Level: 4 Context: Patient is a 30-year-old female with a history of DVTs who presents to the emergency department with left lateral leg pain. Patient states that her symptoms started about 2 days ago. Patient is currently on Xarelto. Denies any injury. - ROS Systems Reviewed and Negative: Yes All other systems reviewed and negative - CONSTITUTIONAL Constitutional: DENIES: Fever, Chills - NEURO Neurology: DENIES: Headache, Weakness - URINARY Urinary: DENIES: Dysuria - MUSCULOSKELETAL Musculoskeletal: REPORTS: Extremity pain - Left lateral leg - DERM Skin Color: Normal Skin Problems: None Past Medical History - Social History Smoking Status: Current Every Day Smoker Family History: Reviewed & Not Pertinent Renal/ Medical History: Denies: Hx Peritoneal Dialysis Past Surgical History: Reports: Hx Section, Hx Tonsillectomy, Hx Tubal Ligation Vertical Provider Document - CONSTITUTIONAL Agree With Documented VS: Yes Exam Limitations: No Limitations General Appearance: No Apparent Distress - INFECTION CONTROL TRAVEL OUTSIDE OF THE [place] IN LAST 30 DAYS: No - HEENT HEENT: Atraumatic, Normocephalic, PERRLA - RESPIRATORY Respiratory: Breath Sounds Normal, No Respiratory Distress - CARDIOVASCULAR Cardiovascular: Regular Rate, Regular Rhythm Pulses: Normal: Radial - MUSCULOSKELETAL/EXTREMETIES Musculoskeletal/Extremeties: FROM, Tender - Left lateral leg. - NEURO Level of Consciousness: Awake, Alert, Appropriate Motor/Sensory: No Motor Deficit, No Sensory Deficit - DERM Integumentary: Warm, Dry, No Rash Course - Re-evaluation Re-evalutation: 09/01/20 15:17 Patient's venous Doppler study is negative for DVT. Capillary refill less than 3 seconds. Dorsalis pedis and posterior tibial pulses 2+. No vascular compromise noted. We will give her [place] for pain. She will follow-up with her primary care provider. Discussed patient's blood pressure. She states that she takes anxiety medication, but has not taken it today. Follow-up precautions were given. Verbal discharge instructions were given to the patient. They verbalized understanding. They are stable for discharge. - Vital Signs Vital signs: Temp Pulse Resp BP Pulse Ox 98.4 F 98 18 143/113 H 99 09/01/20 13:00 09/01/20 13:00 09/01/20 13:00 09/01/20 13:00 09/01/20 13:00 Discharge - Discharge Clinical Impression: Left leg pain Condition: Stable Disposition: HOME, SELF-CARE Additional Instructions: You were seen today in the emergency department for left leg pain. Your ultrasound did not show any blood clots. Please follow-up with your primary care provider. You may take the pain medication as needed. Prescriptions: Hydrocodone/Acetaminophen [[place] 5-325 mg Tablet] 1 tab PO ASDIR PRN #12 tablet PRN Reason: Forms: Return to Work Referrals: HENRIQUE DIOR FNP [Primary Care Provider] - Follow up in 3-5 days
[2020-09-01 15:36] VITALS: BP 151/101
--- NOTE | 2020-09-01 17:11 | RADIOLOGY REPORT (SQ) ---
EXAM DESCRIPTION: VENOUS UNILATERAL LOWER IMAGES COMPLETED DATE/TIME: 09/01/2020 4:48 pm REASON FOR STUDY: LLE pain; hx of DVT COMPARISON: None. TECHNIQUE: Dynamic and static glover scale and color images acquired of the left leg venous system. Se lected spectral images acquired with additional compression and augmentation maneuvers. The contralat eral common femoral vein and saphenofemoral junction were also imaged. Images stored on PACS. LIMITATIONS: None. FINDINGS: COMMON FEMORAL: Normal phasicity, compression and augmentation. No visualized echogenic ma terial on glover scale. No defects on color images. FEMORAL: Normal compression and augmentation. No visualized echogenic material on glover scale. No defe cts on color images. POPLITEAL: Normal compression, augmentation. No visualized echogenic material on glover scale. No defec ts on color images. CALF VESSELS: Normal compression, augmentation. No visualized echogenic material on glover scale. No de fects on color images. GSV and SSV: Normal compression, augmentation. No visualized echogenic material on glover scale. No def ects on color images. ANY DEEP VENOUS INSUFFICIENCY: Not evaluated. ANY EVIDENCE OF POPLITEAL CYST: No. OTHER: No other significant finding. CONTRALATERAL COMMON FEMORAL VEIN AND SAPHENOFEMORAL JUNCTION: Normal phasicity, compression and augmentation. No visualized echogenic material on glover scale. No de fects on color images. IMPRESSION: NO EVIDENCE OF DVT OR SVT IN THE LEFT LEG. TECHNICAL DOCUMENTATION: JOB ID: [id number] 2010 [employer]- All Rights Reserved Reading location - IP/workstation name: [email or web address]
== END 2020-09-01 15:34 | disposition home or self-care (01) ==
LOC: ER 12:26
DX: M79.605 Pain in left leg (principal); F17.200 Nicotine dependence, unspecified, uncomplicated; Z86.718 Personal history of other venous thrombosis and embolism; Z79.02 Long term (current) use of antithrombotics/antiplatelets
CPT/HCPCS: 93971; 99284